=== PATIENT | male | born 1985 | race Caucasian/White ===

== ENCOUNTER 2025-02-11 11:33 | Emergency (ER) | payer OTHER, SELFPAY ==
--- NOTE | 2025-02-11 11:43 | ED.EYEPROB ---
HPI - Eye Problem General Chief complaint: Eye Problems Stated complaint: EYE REDNESS Time Seen by Provider: 02/11/25 11:45 Source: patient Mode of arrival: ambulatory Limitations: no limitations History of Present Illness HPI Narrative: 39-year-old male presented for complaint of foreign body sensation in the left eye. Onset Yesterday, and worsening overnight. Says he is unsure how he got anything into the eye or what it could be. Endorses redness and clear eye drainage. Denies vision changes, photophobia, or itching. chief complaint: eye pain Related Data Allergies Allergy/AdvReac Type Severity Reaction Status Date / Time No Known Allergies Allergy Verified 02/11/25 11:47 Review of Systems Review of Systems: CONSTITUTIONAL: Denies body aches, fever, chills EYES:Endorses redness and pain, FB sensation to left eye Denies visual changes photophobia ENT: Denies rhinorrhea, congestion, sore throat, or otalgia. CARDIOVASCULAR: Denies chest pain, palpitations RESPIRATORY: Denies cough or dyspnea. GASTROINTESTINAL: Denies abdominal pain, nausea, vomiting, or diarrhea. SKIN: Denies rash, itching, or wounds. MUSCULOSKELETAL: Denies back pain, joint pain, or myalgia. NEUROLOGIC: Denies headache, numbness, tingling, or weakness. All systems reviewed & are unremarkable except as noted in HPI and below PMFSH Comments At time of signature, I have reviewed and agree with nursing past medical, surgical, social and family history unless otherwise noted. Please see nursing chart for further information. There is no relevant family history pertinent to the presenting complaint Exam Narrative: GENERAL: Well-appearing HEAD: Normocephalic, atraumatic. EYES: Left conjunctival injection, visible FB noted over iris at 7oclock position. no eye lid swelling/redness. EOMI. PERRLA ENT: Mucous membranes pink and moist. No rhinorrhea. TMs normal bilaterally. Throat normal. Uvula midline. CHEST: Clear to auscultation. HEART: Regular rate and rhythm. SKIN: Warm, dry, no rash. Normal skin turgor. NEURO: No focal deficits. Alert and oriented x3 PSYCH: Normal affect. Course Course Emergency Course: Patient is aware of diagnosis, understands and agrees to treatment plan. Anticipatory guidance given. Patient agrees to follow-up as directed and is aware of reasons to seek care at the emergency department. Portions of this record may have been created with voice recognition software Level of Care: Express Care Visit Vital Signs Vital signs: Vital Signs Temperature 97.6 F 02/11/25 11:44 Pulse Rate 79 02/11/25 11:44 Respiratory Rate 16 02/11/25 11:44 Blood Pressure 125/77 02/11/25 11:44 Pulse Oximetry 99 02/11/25 11:44 Temperature 97.6 F 02/11/25 11:44 Pulse Rate 79 02/11/25 11:44 Respiratory Rate 16 02/11/25 11:44 Blood Pressure 125/77 02/11/25 11:44 Pulse Oximetry 99 02/11/25 11:44 Procedures FB Removal Eye Foreign Body #1: Foreign Body Removal Date: 02/11/25 Location: eye (L) Topical anesthetic used: tetracaine Foreign body: other (unknown) Evidence of corneal penetration: Yes Technique: irrigation and cotton tip swab Patient tolerated procedure: well and no complications Complications: incomplete foreign body removal Foreign Body Removal Narrative: FB to left eye remains embedded after multiple attempts at removal. Few small specks were removed with the cotton tip swab. MDM - Eye Problem MDM Narrative Medical decision making narrative: Discussed physical exam findings, FB noted to left eye. Unable to fully remove the FB, advised ER transfer for removal. Pt declines at this time and states he will follow up with an eye doctor tomorrow morning. Will send antibiotics and ketoralac meanwhile. He is aware of the risk of worsening condition, visual impairment or loss of vision, and . Advised supportive measures and signs/symptoms to go to the ER. Differential Diagnosis Differential diagnosis: Likely corneal abrasion, conjunctivitis, acute iritis, corneal ulcer and other (foreign body) Discharge Plan Discharge Clinical Impression: Foreign body in eye Patient Disposition: Left Against Medical Advice Condition: Stable Instructions: Eye Foreign Body (ED) Additional Instructions: You were advised to transfer to the ER and you decline at this time. You were made aware of the risk of refusal including worsening of your condition and . Report to the ER immediately by calling 911 for any worsening symptoms. You have an unknown foreign body in the left eye and you are advised to go to the ER for removal of the foreign body. Use the antibiotic drop and Ketoralac as directed You can wear sunglasses or stay in low light to avoid light sensitivity. Do not touch or rub your eye. Use over the counter lubricating eye drops as needed for the irritation Do not wear contact lenses until issue is resolved You may take Tylenol or ibuprofen for pain [facility] [phone] [phone] [facility] [phone] [facility] [phone] Patient Language: [place] Prescriptions: New ketorolac 0.5 % drops 1 drp LEFT EYE Q6H PRN (Reason: pain) Qty: 3 0RF ofloxacin 0.3 % drops See Rx Instructions .ROUTE .COMPLEX Qty: 10 0RF Rx Instructions: put 2 drops into left eye every 30 minutes while awake, and every 4 hours after you go to sleep for the first 2 days. Then 2 drops every 1 hour while awake for 6 days. Then 2 drops every 6 hours until resolved. Follow-up/Referrals: Ray,Melody Mejias MD [Primary Care Provider] - Stand Alone Forms: Work/School Release IP Time of Disposition: 12:23
[2025-02-11 11:44] VITALS: BP 125/77; PULSE 79; RESP 16; TEMP 36.4; O2SAT 99
[2025-02-11] MEDS: DACRIOSE EYE IRRIGATION 118 ML BOTTLE AFFCTD EYE (11:56)
[2025-02-11] MEDS: TETRACAINE HCL 0.5% OPHTH SOLN 4 ML BTL AFFCTD EYE (11:57)
[2025-02-11] MEDS: FLUORESCEIN SOD 1 MG/STRIP AFFCTD EYE (11:57)
== END 2025-02-11 12:26 | disposition left against medical advice (07) ==
PROVIDERS: PCP Family Medicine
DX: T15.82XA Foreign body in other and multiple parts of external eye, left eye, initial encounter (principal); W44.9XXA Unspecified foreign body entering into or through a natural orifice, initial encounter
CPT/HCPCS: 65235; 99213; A9270; G0463